=== PATIENT | female | born 1985 | race African-American/Black ===

== ENCOUNTER 2019-02-07 12:01 | Outpatient (CLI) | payer MEDICAID ==
--- NOTE | 2019-02-12 18:27 | MMO ---
Bilateral MAMMO Bilat Screen [facility]. CLINICAL HISTORY: Patient is 33 years old and is seen for screening. The patient has the following family history of breast cancer: mother, at age 40 and maternal aunt. The patient has no personal history of cancer. VIEWS: The views performed were: bilateral craniocaudal and bilateral mediolateral oblique. FILMS COMPARED: The present examination has been compared to a prior imaging study performed at [facility] on 04/28/2016. This study has been interpreted with the assistance of computer-aided detection. MAMMOGRAM FINDINGS: The breasts are extremely dense, which may lower the sensitivity of mammography. There are no suspicious masses, suspicious calcifications, or new areas of architectural distortion. IMPRESSION: THERE IS NO MAMMOGRAPHIC EVIDENCE OF MALIGNANCY. A ROUTINE FOLLOW-UP MAMMOGRAM AT AGE 41 IS RECOMMENDED. ACR BI-RADS Category 1 - Negative MAMMOGRAPHY NOTE: 1. A negative mammogram report should not delay a biopsy if a dominant of clinically suspicious mass is present. 2. Approximately 10% to 15% of breast cancers are not detected by mammography. 3. Adenosis and dense breasts may obscure an underlying neoplasm.
== END 2019-02-07 12:02 | disposition home or self-care (01) ==
LOC: BICMAMMO 12:01
PROVIDERS: ATTEND Family Medicine
DX: Z12.31 Encounter for screening mammogram for malignant neoplasm of breast (principal); Z80.3 Family history of malignant neoplasm of breast
CPT/HCPCS: 77067

== ENCOUNTER 2019-10-10 13:32 | Emergency (ER) | payer MEDICAID, SELFPAY ==
[2019-10-10] MEDS ORDERED: Ketorolac Tromethamine 30 MG/ML VIAL ONE (13:58)
== END 2019-10-10 14:17 | disposition home or self-care (01) ==
LOC: SCSER 13:32
DX: K13.0 Diseases of lips (principal)
CPT/HCPCS: 96372; 99283; J1885